=== PATIENT | female | born 1980 | race Caucasian/White ===

== ENCOUNTER 2019-06-11 09:58 | Emergency (ER) | payer BC, OTHER ==
[2019-06-11 10:05] VITALS: TEMP 98.2; BMI 29.2
--- NOTE | 2019-06-11 10:25 | PDOC ---
History of Present Illness - General Chief Complaint: Pain Stated Complaint: PAIN Time Seen by Provider: 06/11/19 10:10 History Source: Patient Exam Limitations: No Limitations - History of Present Illness Initial Comments: 06/11/19 10:13 39 yo F comes in c/o R arm pain since April 22 s/p fall. She fell on an outstretched R hand and has been in pain since. She had xrays done, had PT prescribed by her orthopedist but her R upper arm hurts a lot. she cannot comb her hair/scratch her back, raise her arm above her head. Denies shoulder/neck/elbow/wrist/hand pain. Only c/o pain at the humerus. Denies numbness/tingling. She has been taking advil 400mg 2-3 timer a day without relief Pain rubio sbeen getting worse over the past couple of weeks. Denies CP, no SOB, no back pain (+)smoking, (+)family h/o DVT/PE, brother and father. No h/o malignancy, no recent prolonged of immobilization, no OCP use, no recent surgery, no new trauma. 06/11/19 10:51 06/11/19 10:55 Past History - Past Medical History Allergies/Adverse Reactions: Allergies Allergy/AdvReac Type Severity Reaction Status Date / Time No Known Allergies Allergy Verified 06/11/19 10:05 COPD: No Thyroid Disease: Yes Other medical history: taking diet pills Qsymia since february - Psycho Social/Smoking Cessation Hx Smoking History: Current every day smoker Information on smoking cessation initiated: No Review of Systems - Review of Systems Able to Perform ROS?: Yes Constitutional: No: Chills, Fever, Malaise, Night Sweats HEENTM: No: Eye Pain, Recent change in vision, Throat Pain Respiratory: No: Cough, Shortness of Breath Cardiac (ROS): No: Chest Pain, Palpitations, Chest Tightness ABD/GI: No: Diarrhea, Nausea, Vomiting, Abdominal cramping : No: Dysuria, Hematuria Musculoskeletal: No: Back Pain Integumentary: No: Rash Neurological: No: Headache, Numbness, Dizziness Psychiatric: No: Change in Appetite Endocrine: No: Unexplained Weight Loss *Physical Exam - Vital Signs Last Vital Signs Temp Pulse Resp BP Pulse Ox 98.2 F 110 H 20 175/110 H 99 06/11/19 09:59 06/11/19 09:59 06/11/19 09:59 06/11/19 09:59 06/11/19 09:59 - Physical Exam General Appearance: Yes: Nourished. No: Apparent Distress HEENT: positive: GERRI, Normal ENT Inspection, Normal Voice. negative: Pale Conjunctivae, Scleral Icterus (R), Scleral Icterus (L) Neck: positive: Supple. negative: Decreased range of motion, Tender midline Respiratory/Chest: positive: Lungs Clear, Normal Breath Sounds. negative: Respiratory Distress, Accessory Muscle Use Cardiovascular: positive: Regular Rhythm, Regular Rate Gastrointestinal/Abdominal: positive: Normal Bowel Sounds, Soft. negative: Tender Musculoskeletal: positive: Other (RUE with mild swelling over deltoid muscle, (+ )mild tenderness to proximal upper arm, no skin changes, no warmth/streaking, Limited ROM R shoulder due to pain upper arm. Unable to abduct above 90 degrees , unable to scratch her back with internal or external rotation R shoulder. 5/5 strength, good ham boner, full sensory function, good cap refill. NVI. R shoulder/ elbow/wrist/fingers non tender with FROM and 5/5 strength). negative: CVA Tenderness Extremity: positive: Normal Capillary Refill, Normal Inspection, Normal Range of Motion. negative: Tender, Pedal Edema Integumentary: positive: Normal Color, Dry. negative: Jaundice, Rash Neurologic: positive: Fully Oriented, Alert, Normal Mood/Affect ED Treatment Course - LABORATORY CBC & Chemistry Diagram: 06/11/19 12:45 06/11/19 12:45 Medical Decision Making - Medical Decision Making 06/11/19 10:58 39 yo w/ R upper arm injury 2 mo ago, c/o persistent R upper arm pain, worsening. xrays negative, PT not helping. (+)risk factors for DVT, will do a dulex R/O DVT. If duplex negative, likely muscular-ligamentous injury, will refer back to ortho for likely MRI 06/11/19 13:51 Vitals look better but pt is still hypertensive and tachycardic No DVT on sono, D dimer negative VItals stable now HR 87, BP 132/84 Pt feeling a little better. She has an appt with her orthopedist on Thursday, will follow up. Likely muscular or ligamentous Return for worseniing/concerning symptoms Pt verbalizes understanding and agrees with plan. 06/11/19 14:03 Discharge - Discharge Information Problems reviewed: Yes Clinical Impression/Diagnosis: Arm pain Qualifiers: Laterality: right Qualified Code(s): M79.601 - Pain in right arm Condition: Stable Disposition: HOME - Follow up/Referral Referrals: Cricket Mathis [Primary Care Provider] - - Patient Discharge Instructions Additional Instructions: Please keep your appointment with your orthopedist on Thursday. Return to the ER for worsening/concerning symptoms. Your ultrasound did not show a blood clot but your blood test for blood clot (D-dimer) test was normal. You may take ibuprofen 600mg and tylenol 975mg for pain for 3-4 days. - Post Discharge Activity
[2019-06-11] MEDS ORDERED: IBUPROFEN 600 MG TABLET (FP) PO ONE ×2 (10:27→11:03)
--- NOTE | 2019-06-11 10:48 | PDOC ---
*Physical Exam - Vital Signs Last Vital Signs Temp Pulse Resp BP Pulse Ox 98.2 F 110 H 20 175/110 H 99 06/11/19 09:59 06/11/19 09:59 06/11/19 09:59 06/11/19 09:59 06/11/19 09:59 ED Treatment Course - LABORATORY CBC & Chemistry Diagram: 06/11/19 12:45 06/11/19 12:45 Medical Decision Making - Medical Decision Making 06/11/19 10:47 Ms. Goldstein is a 39-year-old RHD female presenting to the emergency department for assessment of right shoulder pain. Patient states her symptoms have been present for approximately a month and a half. She had a fall from standing height onto an outstretched arm into a wall. She did not have pain immediately, however approximately a week later she began to have right shoulder pain. She is now been assessed by an urgent care as well as an orthopedist. There were no acute fractures Patient was sent for physical therapy which she has completed 8 visits Patient's pain has not improved at all Of note: Patient states that her brother was recently diagnosed with a pulmonary embolism and her father was diagnosed with a DVT Pt seen by Midlevel Provider under my direct supervision Pt interviewed and examined Patient appears to be in pain Regular rate and rhythm Lungs are clear Right shoulder appears equal to the left shoulder Abduction nml Adduction nml (+) Neer's test (+) Tari/Empty Can test Ancillary studies pending I agree with plan as outlined by Midlevel Provider 06/11/19 12:37 06/11/19 12:45 06/11/19 14:31 Laboratory Tests 06/11/19 12:45 D-Dimer 300 D/c home Pt has ortho appointment in 3 days Discharge - Discharge Information Clinical Impression/Diagnosis: Arm pain Condition: Stable Disposition: HOME - Follow up/Referral Referrals: Cricket Mathis [Primary Care Provider] - - Patient Discharge Instructions Additional Instructions: Please keep your appointment with your orthopedist on Thursday. Return to the ER for worsening/concerning symptoms. Your ultrasound did not show a blood clot but your blood test for blood clot (D-dimer) test was normal. You may take ibuprofen 600mg and tylenol 975mg for pain for 3-4 days. - Post Discharge Activity
[2019-06-11 11:12] VITALS: BP 142/99; PULSE 107
[2019-06-11 13:25] LABS: BASO % 0.5 % (0-2.0); EOS % 1.1 % (0-4.5); HEMATOCRIT 40.1 % (32.4-45.2); HEMOGLOBIN 13.6 GM/dL (10.7-15.3); LYMPH % 23.9 % (8-40); MCH 28.7 pg (25.7-33.7); MCHC 33.9 g/dl (32.0-36.0); MEAN CELL VOLUME 84.5 fl (80-96); MEAN PLT VOLUME 6.8 fl (7.5-11.1); MONO % 4.1 % (3.8-10.2); NEUT % 70.4 % (42.8-82.8); PLATELET COUNT 376 K/MM3 (134-434); RBC 4.75 M/mm3 (3.60-5.2); RDW 13.7 % (11.6-15.6); WHITE BLOOD COUNT 9.5 K/mm3 (4.0-10.0)
[2019-06-11 13:56] LABS: ALBUMIN 4.5 g/dl (3.4-5.0); BILIRUBIN,TOTAL 0.4 mg/dL (0.2-1); BLOOD UREA NITROGEN 9.1 mg/dL (7-18); CALCIUM 9.5 mg/dL (8.5-10.1); CREATININE 0.9 mg/dL (0.55-1.3); MAGNESIUM 2.4 mg/dL (1.8-2.4); PHOSPHOROUS 3.6 mg/dL (2.5-4.9); POTASSIUM 3.9 mmol/L (3.5-5.1); TOT PROT 7.5 g/dl (6.4-8.2)
[2019-06-11 13:59] LABS: INR 1.04 (0.83-1.09); PROTHROMBIN TIME (PATIENT) 12.3 SEC (9.7-13.0)
== END 2019-06-11 14:08 | disposition home or self-care (01) ==
LOC: JER 09:58
DX: M79.601 Pain in right arm (principal)
CPT/HCPCS: 36415; 80053; 82550; 83735; 84100; 84484; 85025; 85379; 85610; 93971; 99283-25

== ENCOUNTER 2019-07-21 20:42 | Emergency (ER) | payer BC ==
[2019-07-21 21:35] VITALS: BP 162/99; PULSE 105; TEMP 98.1; BMI 29.4
--- NOTE | 2019-07-21 22:39 | PDOC ---
History of Present Illness - General Chief Complaint: Pain Stated Complaint: SENT BY PCP/CALF PAIN Time Seen by Provider: 07/21/19 22:38 - History of Present Illness Initial Comments: 07/21/19 22:39 39 yo F no PMH sent from urgent care with R leg pain. States that she began having R hamstring pain on Thursday, which has since traveled down into her mid calf. 5/10 at rest, 8/10 when standing, feels like pressure. Patient notes that her brother was diagnosed with PE in May 2019 at 40 years old, and her father had a DVT last year at 68. She reports that she was checked for coagulation disorders and was told that she did not have any. Denies ever having CP or SOB. Traveled to [place] 3 weeks ago. 1/2 ppd smoker. Denies [place], N/V, fevers/chills, constipation/diarrhea. Past History - Past Medical History Allergies/Adverse Reactions: Allergies Allergy/AdvReac Type Severity Reaction Status Date / Time No Known Allergies Allergy Verified 06/11/19 10:05 COPD: No Thyroid Disease: Yes - Psycho Social/Smoking Cessation Hx Smoking History: Never smoked Review of Systems - Review of Systems Comments:: 07/21/19 22:55 GENERAL/CONSTITUTIONAL: No fever or chills. No weakness. HEAD, EYES, EARS, NOSE AND THROAT: No change in vision. No ear pain or discharge. No sore throat. CARDIOVASCULAR: No chest pain or shortness of breath. RESPIRATORY: No cough, wheezing, or hemoptysis. GASTROINTESTINAL: No nausea, vomiting, diarrhea or constipation. GENITOURINARY: No dysuria, frequency, or change in urination. MUSCULOSKELETAL: No joint or muscle swelling or pain. No neck or back pain. SKIN: No rash NEUROLOGIC: No headache, vertigo, loss of consciousness, or change in strength/ sensation. ENDOCRINE: No increased thirst. No abnormal weight change. HEMATOLOGIC/LYMPHATIC: No anemia, easy bleeding, or personal history of blood clots. However, has family history. ALLERGIC/IMMUNOLOGIC: No hives or skin allergy *Physical Exam - Vital Signs Last Vital Signs Temp Pulse Resp BP Pulse Ox 98.1 F 105 H 19 162/99 97 07/21/19 21:31 07/21/19 21:31 07/21/19 21:31 07/21/19 21:31 07/21/19 21:31 - Physical Exam 07/21/19 22:59 Gen: well-developed, well-nourished, NAD Neuro: AAOX4, CN II-XII intact, FTN intact, EOMI, PERRLA, 5/5 strength, SILT HEENT: atraumatic, normocephalic Neck: trachea midline, supple CV: regular rate, regular rhythm, no murmurs, rubs, or gallops Pulm: CTA b/l, no wheezing Abd: soft, non-distended, non-tender MSK: full ROM, intact pulses Extr: no edema, no deformities, ttp in R mid calf Skin: warm, dry Medical Decision Making - Medical Decision Making 07/21/19 22:57 Concern for potential DVT. - Duplex US is negative. - dc with close follow-up, strict return precautions. Discharge - Discharge Information Problems reviewed: Yes Clinical Impression/Diagnosis: Right calf pain Condition: Stable Disposition: HOME - Admission No - Follow up/Referral Referrals: ON STAFF,NOT [Primary Care Provider] - - Patient Discharge Instructions Additional Instructions: You were seen with right calf pain. Your ultrasound study did not show a DVT. However, it is extremely important that you follow up with your primary care doctor within one week and are closely monitored. If you develop chest pain or shortness of breath, come straight to the ED. - Post Discharge Activity
--- NOTE | 2019-07-21 23:00 | PDOC ---
Attending Attestation - Resident Resident Name: Annetta Samayoa - ED Attending Attestation I have performed the following: I have examined & evaluated the patient, The case was reviewed & discussed with the resident, I agree w/resident's findings & plan, Exceptions are as noted - HPI HPI: 07/21/19 22:57 See resident HPI - Physicial Exam PE: 07/21/19 22:57 Agree with resident exam - Medical Decision Making 07/21/19 22:58 39F no pmh, 1st degree relatives with hx of dvt/pe here with focal RLE pain No swelling on exam f/u US No radiographic evidence of dvt Hx/PE not concerning for PE F/u pcp, strict return precautions
== END 2019-07-21 23:54 | disposition home or self-care (01) ==
LOC: JER 20:42
DX: M79.661 Pain in right lower leg (principal)
CPT/HCPCS: 93971-TC; 99282-25